=== PATIENT | female | born 1940 | race Caucasian/White ===

== ENCOUNTER 2019-11-27 12:33 | Inpatient (IN) | payer MEDICARE, SELFPAY ==
[2019-11-27] VITALS (7 sets, daily range): BP systolic 131–185; BP diastolic 44–85; PULSE 61–67; RESP 16–20; TEMP 36.3–37.1; O2SAT 94–100; BMI 23.0
--- NOTE | ~2019-11-27 | XR_ITS ---
EXAMINATION: XR chest 1V portable DATE: 11/27/2019 13:34 INDICATION: Cough TECHNIQUE: frontal view of the chest was obtained. COMPARISON: Chest radiograph dated 05/03/2018 FINDINGS: Eventration along the right hemidiaphragm. Linear discoid atelectasis at the bilateral lung bases and left midlung zone. Diffuse mild increased interstitial pattern with bronchial wall thickening. No pl eural effusion or pneumothorax. Cardiomegaly. Atherosclerotic aorta. Moderate degenerative skeletal c hanges in the spine and at both shoulders. IMPRESSION: 1. Bilateral mild increased interstitial pattern in the lower lungs with bronchial wall thickening mo st likely pulmonary edema although differential includes bronchitis/bronchiolitis. 2. Cardiomegaly. Reviewed, dictated and finalized at location A. IMPRESSION: 1. Bilateral mild increased interstitial pattern in the lower lungs with bronch ial wall thickening most likely pulmonary edema although differential includes bronchitis/bronchiolitis. 2. Cardiomegaly.
--- NOTE | ~2019-11-27 | CT_ITS ---
EXAMINATION: CT abdomen pelvis wo con DATE: 11/27/2019 14:05 INDICATION: Abdominal pain. Shortness of breath and cough. TECHNIQUE: Computed tomography (CT) of the abdomen and pelvis was performed without intravenous contr ast. Automated exposure control and iterative reconstruction technique were employed. The dose-length product was 382.46 mGy-cm. COMPARISON: 11/26/2016 FINDINGS: Very small right pleural effusion. There is peripheral predominant mild smooth septal line thickening in the bilateral lower lobes, right greater than left consistent with mild pulmonary edema. Cardiome nehemias. Liver, spleen and bilateral adrenal glands are normal. Gallbladder is dilated to 4.5 cm in maxi mal transaxial dimension but without evident wall thickening or pericholecystic inflammatory change t o suggest acute cholecystitis. Chronic dilation of the main pancreatic duct which measures up to 5 mm at the body of the pancreas. Pancreas is otherwise unremarkable. Moderate to severe right renal atro phy with multiple right renal cysts. There is mild right hydroureteronephrosis which extends to the b ladder with no evident obstructing stones or masses. The right ureterovesicular junction is positione d more anteriorly than typical. Left kidney is normal. Bladder is normal. Postoperative change of heide or partial colectomy with small amount of residual high attenuation inspissated material within a janeth g Villavicencio's pouch. Left lower quadrant and colostomy with parastomal herniation of a short length of the distal colon. No bowel obstruction. No free intraperitoneal gas or fluid. No pathologically enlar ged abdominal or pelvic lymphadenopathy. There is calcified atherosclerosis of the aorta and many of the other arteries. 5 mm anterolisthesis L4 on L5 and L5 on S1 with associated mild disc height loss severe bilateral facet osteoarthritis at both levels. IMPRESSION: 1. Cardiomegaly and likely congestive heart failure related mild pulmonary edema at the lung bases wi th very small right pleural effusion. 2. Mild right hydroureteronephrosis extending to the moderately atrophic right kidney. No obstructing stone or mass identified however the ureterovesicular junction appears more anteriorly located than typical which itself might result in a relative obstruction or potentially reflux. There is some stra nding along the right ureter and would correlate with urinalysis to exclude ascending urinary tract i nfection. 3. Stable appearance of dilated gallbladder and dilated main pancreatic duct without associated infla mmatory change to suggest either acute cholecystitis or acute pancreatitis. Reviewed, dictated and finalized at location A. IMPRESSION: 1. Cardiomegaly and likely congestive heart failure related mild pulmonary quynh a at the lung bases with very small right pleural effusion. 2. Mild right hydroureteronephrosis extending to the moderately atrophic right kidney. No obstructing stone or mass identified however the ureterovesicular ju nction appears more anteriorly located than typical which itself might result i n a relative obstruction or potentially reflux. There is some stranding along t he right ureter and would correlate with urinalysis to exclude ascending urinar y tract infection. 3. Stable appearance of dilated gallbladder and dilated main pancreatic duct wi thout associated inflammatory change to suggest either acute cholecystitis or a cute pancreatitis.
--- NOTE | ~2019-11-27 | US_ITS ---
EXAMINATION: US renal BI DATE: 11/29/2019 10:01 INDICATION: Hydronephrosis. TECHNIQUE: Multiple ultrasound grayscale images of the kidneys were obtained. COMPARISON: CT dated 11/27/2019 FINDINGS: The right kidney measures 8.3 x 3.9 x 4.5 cm. Cortical thinning at the right kidney with several simp le appearing anechoic cysts measuring up to 1.6 cm. The left kidney measures 9.4 x 4.4 x 5.8 cm. Norm al renal cortical echogenicity. There is mild bilateral hydronephrosis No stones identified. The blad alexandra is decompressed around a Landa catheter which limits evaluation. IMPRESSION: 1. Mild bilateral hydronephrosis. 2. Moderate right renal atrophy. Reviewed, dictated and finalized at location A.
--- NOTE | ~2019-11-27 | US_ITS ---
EXAMINATION: US right upper quadrant DATE: 11/28/2019 08:18 INDICATION: Right upper quadrant pain TECHNIQUE: Multiple grayscale and Doppler ultrasound images of the abdomen were obtained. COMPARISON: CT from yesterday and 11/26/2016 FINDINGS: The head and and body of the pancreas are normal. The pancreatic tail is obscured by bowel gas. There is chronic enlargement of the pancreatic duct which measures up to 4 mm. The liver is norm al with normal echogenicity and echotexture. No surface nodularity. Normal hepatopetal flow in the ma in portal vein. There is chronic distention of the gallbladder. No pericholecystic fluid, gallbladder wall thickening, or gallstones are present. The chronically dilated common bile duct measures 9 mm w hich is unchanged. There was no sonographic Almanza sign. IMPRESSION: 1. Chronic distention of the gallbladder, common bile duct and pancreatic duct without acute findings seen. Reviewed, dictated and finalized at location A.
--- NOTE | 2019-11-27 12:54 | ED.URI ---
HPI - URI/Sore Throat General Chief Complaint: Urogenital-Female Stated Complaint: sob/dry cough/uti symptoms Time Seen by Provider: 11/27/19 12:54 Source: patient and family Mode of arrival: EMS Limitations: no limitations History of Present Illness HPI Narrative: A 79 y/o female pt presents to the ED, via EMS, with c/o cough and chest congestion since Thursday (5 days ago). Family at bedside states that the pt has a hx of chronic UTI and states that she just finished her prescription of Bactrim today. Family states that if the abx was effective, the pt would be prescribed a low dose to take daily. Pt denies fever or N/V/D. Family at bedside notes pt having increased SOB since onset of congestion. Family states that the pt normally only uses O2 x 2L via NC at night, but states since congestion pt's O2 Sat is reading low, and the pt has been using O2 more frequently. Family notes pt having a PMHx of COPD. MD elicited complaint: cough and other (chest congestion) Pertinent past history: COPD Onset (ago): day(s) (5) Consistency: progressively worsening Associated symptoms: cough, shortness of breath and other (chest congestion) Related Data Home Medications Medication Instructions Recorded Confirmed Iron 65 mg BYMOUTH DAILY 11/27/19 11/27/19 albuterol sulfate [Ventolin HFA] 2 puff INHALATION QID PRN 11/27/19 11/27/19 aspirin [Adult Low Dose Aspirin] 81 mg PO DAILY 11/27/19 11/27/19 budesonide-formoterol [Symbicort] 2 puff INHALATION BID 11/27/19 11/27/19 cholecalciferol (vitamin D3) 5,000 unit PO DAILY 11/27/19 11/27/19 [Vitamin D3] cyanocobalamin (vitamin B-12) 2,500 mcg PO 3XW 11/27/19 11/27/19 [Vitamin B-12] diphenoxylate-atropine 1 tablet PO BID 11/27/19 11/27/19 ergocalciferol (vitamin D2) 1,250 mcg PO 2XW 11/27/19 11/27/19 fluoxetine 80 mg PO DAILY 11/27/19 11/27/19 loperamide 4 mg PO BID 11/27/19 11/27/19 magnesium oxide 500 mg PO 4XW 11/27/19 11/27/19 memantine 10 mg PO BID 11/27/19 11/27/19 metoprolol tartrate 25 mg PO BID 11/27/19 11/27/19 montelukast 10 mg PO DAILY 11/27/19 11/27/19 mqizkiemccyk-pvc-ozft-FA-vit K 1 tablet PO DAILY 11/27/19 11/27/19 [Adults Multivitamin] tiotropium bromide [Spiriva 1 puff INHALATION BID 11/27/19 11/27/19 Respimat] vitamin A 10,000 unit PO DAILY 11/27/19 11/27/19 zinc sulfate 220 mg PO DAILY 11/27/19 11/27/19 Allergies Allergy/AdvReac Type Severity Reaction Status Date / Time levofloxacin Allergy Intermediate Confusion Verified 06/27/19 15:47 bupropion Allergy Unknown Verified 06/27/19 15:47 Sulfa (Sulfonamide Allergy Unknown Verified 06/27/19 15:47 Antibiotics) Review of Systems Review of Systems: All systems reviewed & are unremarkable except as noted in HPI and below Constitutional: Constitutional: Denies fever(s) Respiratory: Respiratory: Reports chest congestion, Reports cough and Reports dyspnea Gastrointestinal: Gastrointestinal: Denies diarrhea, Denies nausea and Denies vomiting PMF Past Medical History Medical History (Updated 11/27/19 @ 18:58 by Daniele Bowman DO) Abdominal aortic aneurysm Acute renal failure (ARF) Anemia Anxiety Arthritis Asthma Cataracts, bilateral Cervical cancer CHF (congestive heart failure) Chronic UTI Colitis COPD (chronic obstructive pulmonary disease) Depression Eczema Heart murmur Hepatitis History of gastroesophageal reflux (GERD) History of rectal polyps History of TIA (transient ischemic attack) Hydronephrosis Hypercholesteremia Hypertension Irritable bowel Kidney stones Melena Osteoporosis Ovarian cancer Pneumonia Renal disease Right wrist fracture Sleep apnea Spinal stenosis UTI (urinary tract infection) Surgical History Surgical History (Updated 11/27/19 @ 14:27 by Emeterio Alva [facility]) History of colectomy History of hysterectomy History of nephrectomy Family History Family History (Updated 04/27/14 @ 07:13 by DOCTOR UNKNOWN) Mother Family history of Alzheimer's disease Acut
[2019-11-27 13:27] LABS: Basophils Percent Auto 0.2 % (0.2-1.2); Eosinophils Absolute Auto 0.1 K/mm3 (0-0.3); Eosinophils Percent Auto 0.5 % (0-4.4); Hematocrit 34.5 % (37.0-47.0); Hemoglobin 11.5 g/dL (12.0-15.0); Immature Granulocyte Absolute 0.41 K/mm3 (0.00-0.031); Immature Granulocyte Percent A 3.2 % (0-0.5); Lymphocytes Absolute Auto 0.81 K/mm3 (0.9-3.2); Lymphocytes Percent Auto 6.3 % (18.3-44.2); Mean Corpuscular HGB Conc 33.3 g/dl (32-36); Mean Corpuscular Hemoglobin 28.5 pg (26-34); Mean Corpuscular Volume 85.4 fl (80-100); Mean Platelet Volume 8.6 fl (7.4-10.4); Monocytes Absolute Auto 0.7 K/mm3 (0.1-0.6); Monocytes Percent Auto 5.5 % (2.6-8.5); Neutrophils Absolute Auto 10.8 K/mm3 (1.3-6.7); Neutrophils Percent Auto 84.3 % (45.5-73.1); Platelet Count Result 405 k/mm3 (150-375); Red Blood Count 4.04 M/mm3 (4.2-5.4); Red Cell Distribution Width 13.7 % (11.5-14.5); White Blood Count 12.8 K/mm3 (4.5-10.0)
[2019-11-27 13:35] LABS: INR 1.7; Prothrombin Time 19.3 Seconds (11.1-14.7)
[2019-11-27 13:36] LABS: Partial Thromboplastin Time 39.9 SECONDS (22.3-36.8)
[2019-11-27 13:38] LABS: Alanine Aminotransferase 27 U/L (4-35); Albumin Level 3.9 g/dL (3.5-5.1); Alkaline Phosphatase 329 U/L (38-126); Aspartate Amino Transferase 38 U/L (14-36); Bilirubin,Total 0.3 mg/dL (0.2-1.3); Blood Urea Nitrogen 84 mg/dL (7-17); Calcium 8.6 mg/dL (8.4-10.2); Carbon Dioxide 15 mmol/L (22-30); Chloride 97 mmol/L (98-107); Glucose 69 mg/dL (65-105); Lactic Acid Reflex 0.7 mmol/L (0.7-2.1); Potassium 5.7 mmol/L (3.4-5.0); Sodium 129 mmol/L (137-145)
--- NOTE | 2019-11-27 13:40 | ECG_ITS ---
Measurements Intervals [place] Rate: 62 P: 71 RI: 177 QRS: 0 QRSD: 91 T: 35 QT: 445 QTc: 455 Interpretive Statements SINUS RHYTHM VOLTAGE CRITERIA FOR LVH BORDERLINE ECG Electronically Signed On 11-27-2019 14:54:56 CDT by Kulwant Ann D.O.
[2019-11-27 13:44] LABS: Add Urine Microscopic? YES; Appearance Urine Cloudy (Clear); Bacteria Urine Trace /hpf; Bilirubin Urine Negative (Negative); Blood Urine 3+ (Negative); Color Urine Yellow (Yellow); Glucose Urine UA Negative (Negative); Ketones Urine Negative (Negative); Leukocyte Esterase Ur 3+ LEU/UL (Negative); Nitrate Urine Negative (Negative); Protein Urine 1+ mg/dL (Negative); RBC Urine >75 /hpf (0-2); Specific Grav Ur 1.013 (1.001-1.035); Urobilinogen Urine Negative mg/dL (<2.0); WBC Clumps Urine Present /HPF; WBC Urine >75 /hpf
[2019-11-27 13:46] LABS: NT Pro B Type Natriuretic Pept 7800 PG/ML (5-100)
[2019-11-27 13:52] LABS: Estimated CRCL calculation 8 ml/min; Estimated Glomerular Filt Rate 12
[2019-11-27 14:09] LABS: Creatine Kinase 52 U/L (30-135)
[2019-11-27] MEDS: SODIUM CHLORIDE 0.9% IV 1,000 ML 999 ML IV CONT (14:10)
[2019-11-27] MEDS: SODIUM BICARBONATE 8.4% 50 MEQ/50 ML VIAL IV PUSH (15:22)
[2019-11-27] MEDS: CALCIUM GLUCONATE 1,000 MG/10 ML VIAL 1000 MG IV PUSH (15:22)
[2019-11-27] MEDS: INSULIN HUMAN REGULAR (*BKC) 100 UNITS/ML 10 UNITS IV PUSH (15:23)
[2019-11-27] MEDS: SODIUM POLYSTYRENE SULFONONATE 15 GM/60 ML BTL 30 GM PO (15:23)
[2019-11-27] MEDS: FUROSEMIDE INJ 40 MG/4 ML VIAL IV PUSH (15:23)
[2019-11-27] MEDS: DEXTROSE 50% 25 GM/50 ML SYRINGE IV PUSH (15:23)
--- NOTE | 2019-11-27 15:42 | PC.NURSE ---
Urine is pink, and purulent at this time. EDP is aware.
--- NOTE | 2019-11-27 18:01 | WPDURCON ---
Assessment and Plan Assessment and plan (1) UTI (urinary tract infection): Code(s): N39.0 - Urinary tract infection, site not specified Status: Acute (2) Hydronephrosis: Code(s): N13.30 - Unspecified hydronephrosis Status: Acute (3) Acute renal failure (ARF): Code(s): N17.9 - Acute kidney failure, unspecified Status: Acute Assessment and Plan: 79 yo F with history of dementia, recurrent UTIs, incontinence, and atrophic right kidney. Patient with recent treatment with Bactrim for urinary tract infection. The patient was admitted today from the ER with acute renal failure, bilateral hydronephrosis, urinary retention, and worsening confusion/mental status. The patient's current condition is unclear, however it appears that most likely the patient is in retention due to her urinary tract infection which subsequently has caused bilateral hydronephrosis. -I recommend we have close monitoring of the patient's renal function. I have ordered a repeat BMP now. A nephrology consult is pending. The patient will need follow-up imaging most likely with a renal ultrasound in 24 to 48 hours with catheter drainage to ensure that there is improvement of her renal function with Landa catheter drainage. If the patient is renal function or hydronephrosis does not improve she may require ureteral stenting, however we will hold off on this intervention at this time. -will continue current conservative management with Landa catheter drainage and IV antibiotics at this time. Await urine cultures Urology Consult Note HPI Date Seen: 11/27/19 Requesting Physician: Eleni Rush MD Primary Care Provider: Nyla Joyner, ARTIST AND REPERTOIRE MANAGER Consult Narrative Narrative: Qasim Chinchilla is a 79 year old female who has a history of urinary tract infections in the past. Patient with known history of atrophic right kidney. She was most recently seen in the office Dr. Torres earlier this month who treated her with a course of antibiotics. Treated with course of Bactrim without much improvement and then given second course of Bactrim x 5 days that completed this morning. She presented to ER today with worsening confusion as well as hematuria. CT scan revealed the patient to have a distended bladder as well as bilateral hydronephrosis more on the right side to her atrophic kidney. Landa catheter was inserted in the emergency department with return of purulent appearing urine. Review of Systems Review of Systems: ROS unobtainable: Yes unobtainable due to mental status [facility] Past Medical History Medical History (Updated 11/27/19 @ 18:05 by Sujey Xiao MD) Abdominal aortic aneurysm Acute renal failure (ARF) Anemia Anxiety Arthritis Asthma Cataracts, bilateral Cervical cancer CHF (congestive heart failure) Chronic UTI Colitis COPD (chronic obstructive pulmonary disease) Depression Eczema Heart murmur Hepatitis History of gastroesophageal reflux (GERD) History of rectal polyps History of TIA (transient ischemic attack) Hydronephrosis Hypercholesteremia Hypertension Irritable bowel Kidney stones Melena Osteoporosis Ovarian cancer Pneumonia Renal disease Right wrist fracture Sleep apnea Spinal stenosis UTI (urinary tract infection) Surgical History Surgical History (Updated 11/27/19 @ 14:27 by [facility]) History of colectomy History of hysterectomy History of nephrectomy Family History Family History (Updated 04/27/14 @ 07:13 by DOCTOR UNKNOWN) Mother Family history of Alzheimer's disease Acute myocardial infarction Other Diabetes mellitus Family history of cardiovascular disease Family history of kidney disease Family history of tuberculosis Hypertension Social History Social History (Updated 11/27/19 @ 14:27 by [facility]io [employer]) Smoking status: Former smoker Tobacco type: cigarettes Smoking end date: 08/31/90 Alcohol intake: never Substan
[2019-11-27 18:53] LABS: Blood Urea Nitrogen 85 mg/dL (7-17); Calcium 9.6 mg/dL (8.4-10.2); Carbon Dioxide 21 mmol/L (22-30); Chloride 99 mmol/L (98-107); Estimated CRCL calculation 8 ml/min; Estimated Glomerular Filt Rate 11; Glucose 112 mg/dL (65-105); Potassium 4.3 mmol/L (3.4-5.0); Sodium 134 mmol/L (137-145)
--- NOTE | 2019-11-27 22:19 | PM.IMHP ---
H&P: HPI History of Present Illness Chief complaint: Acute renal failure/UTI/CHF Narrative: This is a pleasantly demented 79 year old female with known history of COPD, Depression, GERD, HTN, recurrent UTIs, s/p colostomy who presented to the hospital today with a complaint of five days of cough. Apparently the patient just finished a course of Bactrim today. The patient is known to chronically be on oxygen therapy at night but has been using her oxygen round the clock since she has been sick. On my encounter with the patient tonight she seems confused and cannot give me any reliable history. She has blood in her giordano bag and when I ask her directly she agrees that she has had hematuria. CT scan was performed in the ER today which showed a distended bladder and bilateral hydronephrosis. The patient was found to be in acute renal failure on routine labs and her urinalysis was grossly abnormal. The patient has been started on IV antibiotics and Urology has been consulted by ER provider. The patient currently denies any other symptoms. No other further history is obtainable secondary to the patient's dementia and acute confusion. Review of Systems Review of Systems: All systems reviewed & are unremarkable except as noted in HPI and below PMFSH Past Medical History Medical History Abdominal aortic aneurysm Acute renal failure (ARF) Anemia Anxiety Arthritis Asthma Cataracts, bilateral Cervical cancer CHF (congestive heart failure) Chronic UTI Colitis COPD (chronic obstructive pulmonary disease) Depression Eczema Heart murmur Hepatitis History of gastroesophageal reflux (GERD) History of rectal polyps History of TIA (transient ischemic attack) Hydronephrosis Hypercholesteremia Hypertension Irritable bowel Kidney stones Melena Osteoporosis Ovarian cancer Pneumonia Renal disease Right wrist fracture Sleep apnea Spinal stenosis UTI (urinary tract infection) Surgical History Surgical History History of colectomy History of hysterectomy History of nephrectomy Family History Family History Mother Family history of Alzheimer's disease Acute myocardial infarction Other Diabetes mellitus Family history of cardiovascular disease Family history of kidney disease Family history of tuberculosis Hypertension Social History Social History Smoking status: Former smoker Tobacco type: cigarettes Smoking end date: 08/31/90 Alcohol intake: never Substance use: never Gender identity (if verbalized by the patient): Female Spiritual care concerns: No Agree to blood products: Yes Meds Home Medications and Allergies Home Medications Medication Instructions Recorded Confirmed Type Iron 65 mg BYMOUTH DAILY 11/27/19 11/27/19 History albuterol sulfate [Ventolin HFA] 2 puff INHALATION QID PRN 11/27/19 11/27/19 History aspirin [Adult Low Dose Aspirin] 81 mg PO DAILY 11/27/19 11/27/19 History budesonide-formoterol [Symbicort] 2 puff INHALATION BID 11/27/19 11/27/19 History cholecalciferol (vitamin D3) 5,000 unit PO DAILY 11/27/19 11/27/19 History [Vitamin D3] cyanocobalamin (vitamin B-12) 2,500 mcg PO 3XW 11/27/19 11/27/19 History [Vitamin B-12] diphenoxylate-atropine 1 tablet PO BID 11/27/19 11/27/19 History ergocalciferol (vitamin D2) 1,250 mcg PO 2XW 11/27/19 11/27/19 History fluoxetine 80 mg PO DAILY 11/27/19 11/27/19 History loperamide 4 mg PO BID 11/27/19 11/27/19 History magnesium oxide 500 mg PO 4XW 11/27/19 11/27/19 History memantine 10 mg PO BID 11/27/19 11/27/19 History metoprolol tartrate 25 mg PO BID 11/27/19 11/27/19 History montelukast 10 mg PO DAILY 11/27/19 11/27/19 History ptjmfznvvlvd-tmt-mxjk-FA-vit K 1 tablet PO DAILY 11/27/19 11/27/19 History [Adults Multivitami
[2019-11-27 22:49] LABS: Lipase 255 U/L (23-300)
--- NOTE | 2019-11-28 | ECHO_ITS ---
Patient Info Name: Qasim Chinchilla Age: 79 years : 1940 Gender: Female Ht: 60 in Wt: 117 lbs BSA: 1.51 m2 HR: 75 bpm BP: 144 / 51 mmHg Heart Rhythm: Sinus Rhythm Technical Quality: Good Exam Date: 11/28/2019 9:18 AM Exam Location: [facility] Pulmonary Exam Room: [facility] Patient Status: Inpatient Admit Date: 11/27/2019 Staff Ordering Physician: Mane Galan MD Telecasting Engineer: Janelle Farooq RDCS Attending Provider: Eleni Rush MD Referring Physician: Angelia PERALTA; Exam Type: CA echo doppler color flow Study Info Indications - ACUTE CHF ARF MURMUR COPD TIA HTN Complete two-dimensional, color flow and Doppler transthoracic echocardiogram is performed. Summary 1. Left ventricular systolic function is hyperdynamic, estimated at >70%. 2. The left ventricular diastolic function is grade I diastolic dysfunction. 3. Right ventricular chamber dimension is normal. 4. Left atrial chamber dimension is moderately enlarged. 5. There is mild aortic valve sclerosis. 6. Compared with March of 2018 LV is now hyperdynamic, no other changes seen. Left Ventricle Left ventricular chamber dimension is normal. Left ventricular systolic function is hyperdynamic, estimated at >70%. There is moderate concentric increased left ventricular wall thickness. The left ventricular diastolic function is grade I diastolic dysfunction. Right Ventricle Right ventricular chamber dimension is normal. Left Atria Left atrial chamber dimension is moderately enlarged. Right Atria Right atrial chamber dimension is normal. Aortic Valve The aortic valve is trileaflet. There is mild aortic valve sclerosis. Pulmonic Valve The pulmonic valve is normal. Mitral Valve The mitral valve has normal leaflets and calcified annulus. Tricuspid Valve The tricuspid valve leaflets are normal. Pericardium/Pleural The pericardium appears normal. Aorta The aortic root size at the sinus of Valsalva is normal. Left Ventricular Outflow Tract Name Value Normal LVOT 2D LVOT Diameter 2.0 cm LVOT Doppler LVOT Peak Gradient 6 mmHg LVOT Mean Gradient 3 mmHg LVOT VTI 24 cm LVOT VTI/AV VTI Ratio 0.8 LVOT Stroke Volume 73 ml LVOT CO 15.6 l/min LVOT CI 10.3 l/min/m2 Pulmonic Valve Name Value Normal PV Doppler PV Peak Gradient 5 mmHg Mitral Valve Name Value Normal MV Doppler MV Decel Clay
[2019-11-28 06:00] VITALS: BP 144/51; PULSE 75; RESP 16; TEMP 36.1; O2SAT 99
[2019-11-28 06:03] LABS: Basophils Percent Auto 0.5 % (0.2-1.2); Eosinophils Absolute Auto 0.1 K/mm3 (0-0.3); Eosinophils Percent Auto 1.7 % (0-4.4); Hematocrit 33.3 % (37.0-47.0); Immature Granulocyte Absolute 0.32 K/mm3 (0.00-0.031); Lymphocytes Absolute Auto 0.94 K/mm3 (0.9-3.2); Lymphocytes Percent Auto 11.6 % (18.3-44.2); Mean Corpuscular Hemoglobin 28.1 pg (26-34); Mean Corpuscular Volume 85.2 fl (80-100); Mean Platelet Volume 8.3 fl (7.4-10.4); Monocytes Absolute Auto 0.7 K/mm3 (0.1-0.6); Neutrophils Absolute Auto 5.9 K/mm3 (1.3-6.7); Neutrophils Percent Auto 73.2 % (45.5-73.1); Platelet Count Result 349 k/mm3 (150-375); Red Blood Count 3.91 M/mm3 (4.2-5.4); Red Cell Distribution Width 13.8 % (11.5-14.5); White Blood Count 8.1 K/mm3 (4.5-10.0)
[2019-11-28 06:10] LABS: Blood Urea Nitrogen 73 mg/dL (7-17); Calcium 8.5 mg/dL (8.4-10.2); Carbon Dioxide 18 mmol/L (22-30); Chloride 96 mmol/L (98-107); Estimated CRCL calculation 9 ml/min; Estimated Glomerular Filt Rate 13; Glucose 80 mg/dL (65-105); Potassium 3.5 mmol/L (3.4-5.0); Sodium 132 mmol/L (137-145)
[2019-11-28 06:59] LABS: Thyroid Stimulating Hormone Reflex 0.808 uIU/mL (0.465-4.68)
--- NOTE | 2019-11-28 07:19 | P.PNUR_ITS ---
Progress Note: A&P Assessment and Plan (1) Acute urinary retention: Code(s): R33.8 - Other retention of urine Status: Acute (2) Acute renal failure (ARF): Code(s): N17.9 - Acute kidney failure, unspecified Status: Acute (3) Hydronephrosis: Qualifiers: Hydronephrosis type: unspecified Qualified Code(s): N13.30 - Unspecified hydronephrosis Code(s): N13.30 - Unspecified hydronephrosis Status: Acute Assessment and Plan: * Renal function/serum creatinine improved today. * Will get a renal ultrasound to see if hydronephrosis is improving or resolved with catheter drainage. * Currently, no plans for ureteral stent placement as long as her renal function continues to improve. Subjective Subjective Date/Time Seen: 11/28/19 07:19 Urine clear, draining well Review of Systems Cardiovascular: Cardiovascular: Denies chest pain, Denies lightheadedness, Denies palpitations and Denies dyspnea Respiratory: Respiratory: Denies dyspnea Gastrointestinal: Gastrointestinal: Denies diarrhea, Denies nausea and Denies vomiting Genitourinary: Genitourinary: Denies hematuria and Denies dysuria Endocrine: Endocrine: Denies palpitations Exam Const: General: no acute distress Resp: Effort & Inspection: normal respiratory effort GI: Inspection: non-distended GI Palp: No abdominal tenderness and No Guarding due to palpation present (GI) Auscultation: normal bowel sounds Objective Data Vital Signs Vital Signs: Vital Signs - 24 hr 11/27/19 12:45 11/27/19 13:40 11/27/19 14:29 Temperature 98.8 F Pulse Rate 63 61 63 Respiratory Rate 17 19 20 Blood Pressure 178/62 H 167/67 H 159/58 H Pulse Oximetry 94 97 94 11/27/19 16:01 11/27/19 16:38 11/27/19 21:10 Temperature 98.0 F Pulse Rate 67 62 63 Respiratory Rate 20 16 16 Blood Pressure 174/63 H 185/85 H Pulse Oximetry 100 95 100 11/27/19 22:00 11/28/19 06:00 Temperature 97.3 F L 96.9 F L Pulse Rate 63 75 Respiratory Rate 16 16 Blood Pressure 131/44 L 144/51 H Pulse Oximetry 100 99 Intake/Output Intake/Output: Intake & Output 11/25/19 11/26/19 11/27/19 11/28/19 23:59 23:59 23:59 23:59 Intake Total 600 1040 Output Total 1225 1950 Balance -625 910 Meds/Results Medications: Active Medications Generic Name Dose Route Start Last Admin Trade Name Freq PRN Reason Stop Dose Admin Albuterol 2 puff 11/27/19 22:58 Proventil Hfa INHALATION QID PRN Shortness Of Breath Aspirin 81 mg 11/28/19 09:00 Aspirin Ec PO DAILY [facility] Budesonide/Formoterol Fumarate 2 puff 11/28/19 08:00 Symbicort 160-4.5 Mcg (*Sp) Inhaler INHALATION Q12HRT [facility] Cyanocobalamin 2,000 mcg 11/28/19 09:00 Vitamin B-12 Tab PO MoWeFr@0900 DYLAN Cyanocobalamin 500 mcg 11/28/19 09:00 Vitamin B-12 Tab PO MoWeFr@0900 [facility] Ergocalciferol 5,000 unit 11/30/19 09:00 Drisdol PO SuWe@0900 DYLAN Ferrous Sulfate 324 mg 11/28/19 09:00 Ferrous Sul
--- NOTE | 2019-11-28 07:19 | WPDUROPN2 ---
Progress Note: A&P Assessment and Plan (1) Acute urinary retention: Code(s): R33.8 - Other retention of urine Status: Acute (2) Acute renal failure (ARF): Code(s): N17.9 - Acute kidney failure, unspecified Status: Acute (3) Hydronephrosis: Qualifiers: Hydronephrosis type: unspecified Qualified Code(s): N13.30 - Unspecified hydronephrosis Code(s): N13.30 - Unspecified hydronephrosis Status: Acute Assessment and Plan: Renal function/serum creatinine improved today. Will get a renal ultrasound to see if hydronephrosis is improving or resolved with catheter drainage. Currently, no plans for ureteral stent placement as long as her renal function continues to improve. Subjective Subjective Date/Time Seen: 11/28/19 07:19 Urine clear, draining well Review of Systems Cardiovascular: Cardiovascular: Denies chest pain, Denies lightheadedness, Denies palpitations and Denies dyspnea Respiratory: Respiratory: Denies dyspnea Gastrointestinal: Gastrointestinal: Denies diarrhea, Denies nausea and Denies vomiting Genitourinary: Genitourinary: Denies hematuria and Denies dysuria Endocrine: Endocrine: Denies palpitations Exam Const: General: no acute distress Resp: Effort & Inspection: normal respiratory effort GI: Inspection: non-distended GI Palp: No abdominal tenderness and No Guarding due to palpation present (GI) Auscultation: normal bowel sounds Objective Data Vital Signs Vital Signs: Vital Signs - 24 hr 11/27/19 12:45 11/27/19 13:40 11/27/19 14:29 Temperature 98.8 F Pulse Rate 63 61 63 Respiratory Rate 17 19 20 Blood Pressure 178/62 H 167/67 H 159/58 H Pulse Oximetry 94 97 94 11/27/19 16:01 11/27/19 16:38 11/27/19 21:10 Temperature 98.0 F Pulse Rate 67 62 63 Respiratory Rate 20 16 16 Blood Pressure 174/63 H 185/85 H Pulse Oximetry 100 95 100 11/27/19 22:00 11/28/19 06:00 Temperature 97.3 F L 96.9 F L Pulse Rate 63 75 Respiratory Rate 16 16 Blood Pressure 131/44 L 144/51 H Pulse Oximetry 100 99 Intake/Output Intake/Output: Intake & Output 03/11/26/19 11/27/19 11/28/19 23:59 23:59 23:59 23:59 Intake Total 600 1040 Output Total 1224 2536 Balance -907 -910 Meds/Results Medications: Active Medications Generic Name Dose Route Start Last Admin Trade Name Freq PRN Reason Stop Dose Admin Albuterol 2 puff 11/27/19 22:58 Proventil Hfa INHALATION QID PRN Shortness Of Breath Aspirin 81 mg 11/28/19 09:00 Aspirin Ec PO DAILY [facility] Budesonide/Formoterol Fumarate 2 puff 11/28/19 08:00 Symbicort 160-4.5 Mcg (*Sp) Inhaler INHALATION Q12HRT [facility] Cyanocobalamin 2,000 mcg 11/28/19 09:00 Vitamin B-12 Tab PO MoWeFr@0900 [facility] Cyanocobalamin 500 mcg 11/28/19 09:00 Vitamin B-12 Tab PO MoWeFr@0900 [facility] Ergocalciferol 5,000 unit 11/30/19 09:00 Drisdol PO SuWe@0900 [facility] Ferrous Sulfate 324 mg 11/28/19 09:00 Ferrous Sulfate PO DAILY [facility] Fluoxetine HCl 80 mg 11/28/19 09:00 Prozac PO DAILY [facility] Hydralazine HCl 10 mg 11/27/19 21:16 Apresoline Hcl Inj IV PUSH 11/29/19 07:00 Q8H PRN see comment Ceftriaxone Sodium/Dextrose 1 gm in 50 mls @ 100 mls/hr 11/28/19 14:00 11/27/19 16:06 Rocephin 1 Gm/D5w 50 Ml IVPB Not Given DAILY@1400 [facility] Loperamide HCl 4 mg 11/28/19 09:00 Loperamide Hcl PO BID [facility] Memantine 10 mg 11/27/19 23:10 11/28/19 03:56 Namenda PO Not Given BID [facility] Metoprolol Tartrate 25 mg 11/27/19 23:10 11/27/19 23:10 Lopressor PO Not Given BID [facility] Montelukast Sodium 10 mg 11/28/19 09:00 Singulair PO DAILY [facility] Multivitamins/Minerals 1 tab 11/28/19 09:00 Centrum Silver PO DAILY [facility] Non-Formulary Medication 500 mg 11/27/19 23:00 Magnesium Oxide PO 12/27/19 23:01 4XW [facility] Non-Formulary Medication 1 puff 11/28/19 09:00 Tiot
[2019-11-28] MEDS: CHOLECALCIFEROL 1,000 UNIT TABLET 5000 UNITS PO (08:23)
[2019-11-28] MEDS: MEMANTINE 10 MG TABLET PO ×2 (08:23→16:42)
[2019-11-28] MEDS: CYANOCOBALAMIN 500 MCG TABLET PO (08:24)
[2019-11-28] MEDS: ZINC SULFATE 220 MG CAPSULE PO (08:24)
[2019-11-28] MEDS: FERROUS SULFATE 324 MG TABLET PO (08:24)
[2019-11-28] MEDS: MULTIVITAMINS /C LUTEIN (CENTRUM SILVER) TABLET *BKC 1 TAB PO (08:24)
[2019-11-28] MEDS: METOPROLOL TARTRATE 25 MG TABLET PO ×2 (08:24→16:42)
[2019-11-28] MEDS: MONTELUKAST SODIUM 10 MG TABLET PO (08:24)
[2019-11-28] MEDS: CYANOCOBALAMIN 1,000 MCG TABLET 2000 MCG PO (08:24)
[2019-11-28] MEDS: FLUOXETINE HCL 20 MG CAP 80 MG PO (08:25)
[2019-11-28] MEDS: ASPIRIN 81 MG ENTERIC TABLET PO (08:25)
[2019-11-28] MEDS: LOPERAMIDE HCL 2 MG CAPSULE 4 MG PO ×2 (08:25→16:42)
--- NOTE | 2019-11-28 12:24 | PM.IMPN ---
Progress Note: A&P Assessment and Plan (1) Complicated UTI (urinary tract infection): Code(s): N39.0 - Urinary tract infection, site not specified Status: Acute Assessment and Plan: Continue IV antibiotics, UC is pending (2) Acute renal failure: Qualifiers: Acute renal failure type: unspecified Qualified Code(s): N17.9 - Acute kidney failure, unspecified Code(s): N17.9 - Acute kidney failure, unspecified Status: Acute Assessment and Plan: Ct shows- hydronephrosis and had a distended bladder. Creat is 3.3 (3) CHF (congestive heart failure): Qualifiers: Heart failure chronicity: acute Heart failure type: unspecified Qualified Code(s): I50.9 - Heart failure, unspecified Code(s): I50.9 - Heart failure, unspecified Status: Acute Assessment and Plan: r/o acute CHF exacerbation. Continue lasix. pro BNP is 7800 (4) Abnormal CT scan: Code(s): R93.89 - Abnormal findings on diagnostic imaging of other specified body structures Status: Acute Assessment and Plan: Check RUQ U/S. Lipase was normal. (5) Hydronephrosis: Qualifiers: Hydronephrosis type: unspecified Qualified Code(s): N13.30 - Unspecified hydronephrosis Code(s): N13.30 - Unspecified hydronephrosis Status: Acute Assessment and Plan: Secondary to urinary retention. Continue Urology recommendations. (6) COPD (chronic obstructive pulmonary disease): Qualifiers: COPD type: unspecified COPD Qualified Code(s): J44.9 - Chronic obstructive pulmonary disease, unspecified Code(s): J44.9 - Chronic obstructive pulmonary disease, unspecified Status: Acute Assessment and Plan: Continue bronchodilators. (7) Depression: Qualifiers: Depression Type: unspecified Qualified Code(s): F32.9 - Major depressive disorder, single episode, unspecified Code(s): F32.9 - Major depressive disorder, single episode, unspecified Status: Acute Assessment and Plan: Resume home fluoxetine PO. (8) Hypertension: Qualifiers: Hypertension type: unspecified Qualified Code(s): I10 - Essential (primary) hypertension Code(s): I10 - Essential (primary) hypertension Status: Acute Assessment and Plan: Chronic and stable. Continue to monitor Bps Subjective Date/time seen: 11/28/19 12:24 Interval history: Mrs. Chinchilla demented 79 year old female with known history of COPD, Depression, GERD, HTN, recurrent UTIs, s/p colostomy who presented to the hospital today with a complaint of five days of cough. Uses oxygen at home. cxr shows -Bilateral mild increased interstitial pattern in the lower lungs with bronchial wall thickening most likely pulmonary edema although differential includes bronchitis/bronchiolitis. Ct scan- mild bilateral hydronephrosis and hydroureter extending to the bladder. Pt is a poor historian, no specific complaints. Ongoing cough in the room. Review of Systems Review of Systems: All systems reviewed & are unremarkable except as noted in HPI and below ROS unobtainable: Yes unobtainable due to medical condition Exam Const: General: cooperative, no acute distress, alert and awake Nutritional Appearance: well nourished Orientation/consciousness: oriented to person Resp: Effort & Inspection: normal respiratory effort Auscultation: crackles bilateral and diffuse Cardio: Rate: regular rate Rhythm: regular rhythm Heart sounds: no murmurs GI: Inspection: normal to inspection and other (LLQ colostomy bag in place+) Auscultation: normal bowel sounds Skin: General skin exam: normal color and no rashes or lesions noted Neuro: General: oriented to person Cranial nerves: Yes CN's II-XII intact bilaterally and Yes Equal, round and reactive pupils present Speech: normal speech Motor exam (neuro): 5/5 motor strength present throughout Sensory Ex
--- NOTE | 2019-11-28 12:45 | PM.CNNEP ---
Assessment and Plan Assessment and plan (1) Acute renal failure: Qualifiers: Acute renal failure type: unspecified Qualified Code(s): N17.9 - Acute kidney failure, unspecified Code(s): N17.9 - Acute kidney failure, unspecified Status: Acute Assessment and Plan: Patient has acute kidney injury. Her baseline creatinine seems normal. She has hydronephrosis on her CT scan. A Landa catheter was placed and she is making lots of urine. Her creatinine is already getting better. I suspect that most of this is from the obstruction. Urology is on the case to work out the etiology there of. Patient also has a bladder infection which may slow the improvement of her creatinine. She is on antibiotics for this. (2) UTI (urinary tract infection): Code(s): N39.0 - Urinary tract infection, site not specified Status: Acute Assessment and Plan: She has pyuria. Urine culture is pending. She is getting ceftriaxone for this. (3) Hydronephrosis: Qualifiers: Hydronephrosis type: unspecified Qualified Code(s): N13.30 - Unspecified hydronephrosis Code(s): N13.30 - Unspecified hydronephrosis Status: Acute Assessment and Plan: As per CT abdomen. Urology is on the case she has a catheter in her bladder (4) Hypertension: Qualifiers: Hypertension type: unspecified Qualified Code(s): I10 - Essential (primary) hypertension Code(s): I10 - Essential (primary) hypertension Status: Acute Assessment and Plan: her blood pressure is under pretty good control (5) COPD (chronic obstructive pulmonary disease): Qualifiers: COPD type: unspecified COPD Qualified Code(s): J44.9 - Chronic obstructive pulmonary disease, unspecified Code(s): J44.9 - Chronic obstructive pulmonary disease, unspecified Status: Acute Assessment and Plan: getting supportive therapy History of Present Illness Reason for Consult Consult date: 11/28/19 Chief Complaint Chief complaint: Acute renal failure/UTI/CHF History of Present Illness Narrative: This patient is a very pleasant 79-year-old lady who has multiple medical problems including COPD, vitamin-D deficiency, anemia, dementia, depression, GERD, hypertension, recurrent UTIs, and colostomy. The patient came in because of extra confusion,. The patient was seen in the emergency room and found to have renal failure and UTI. The patient started with a creatinine of 3.6. She has no prior history of kidney disease that we know of. Her creatinine nena to 4 yesterday evening so renal consultation was requested. This morning the creatinine has fallen a little bit to 3.3. The patient can't really give any history. She can tell me that she does not have any pain in her chest or belly, no bloody urine, no kidney stones or bladder infections, no itching, skin rash, fevers or chills. She does have a low sodium and this is chronic. Back in May her sodium was 136. She had blood and urine cultures done and she was placed on antibiotics and given some IV fluids. She wants to go home. She is on a fluid restriction and is very thirsty. Review of Systems Constitutional: Constitutional: Reports no additional constitutional complaints Eyes: Eyes: Reports no additional eye complaints ENT: Reports system reviewed and no additional complaints, except as documented Cardiovascular: Cardiovascular: Reports no additional cardiovascular complaints Respiratory: Respiratory: Reports no additional respiratory complaints Gastrointestinal: Gastrointestinal: Reports no additional gastrointestinal complaints Genitourinary: Genitourinary: Reports no additional female genitourinary complaints Musculoskeletal: Musculoskeletal: Reports no additional musculoskeletal complaints Integumentary/Breasts: Skin/Breast: Reports system reviewed and no additional
[2019-11-28 14:00] VITALS: BP 142/45; PULSE 62; RESP 18; TEMP 36.8; O2SAT 98
[2019-11-28 14:15] LABS: Creatinine Urine 67.2 mg/dL; Total Protein Urine Random 81 mg/dL
[2019-11-28 14:16] LABS: Sodium Urine Random 28 meq/L
[2019-11-28 20:06] VITALS: BP 141/88; PULSE 62; RESP 16; TEMP 36.6; O2SAT 98
[2019-11-28 21:24] VITALS: PULSE 66; RESP 18; O2SAT 98
[2019-11-29 05:58] LABS: Hematocrit 40.8 % (37.0-47.0); Hemoglobin 13.2 g/dL (12.0-15.0); Mean Corpuscular HGB Conc 32.4 g/dl (32-36); Mean Corpuscular Hemoglobin 27.9 pg (26-34); Mean Corpuscular Volume 86.3 fl (80-100); Mean Platelet Volume 8.9 fl (7.4-10.4); Platelet Count Result 529 k/mm3 (150-375); Red Blood Count 4.73 M/mm3 (4.2-5.4); Red Cell Distribution Width 13.6 % (11.5-14.5); White Blood Count 15.2 K/mm3 (4.5-10.0)
[2019-11-29 06:00] VITALS: BP 130/90; PULSE 57; RESP 13; TEMP 36.4; O2SAT 98
[2019-11-29 06:29] LABS: Blood Urea Nitrogen 69 mg/dL (7-17); Calcium 9.8 mg/dL (8.4-10.2); Carbon Dioxide 29 mmol/L (22-30); Chloride 89 mmol/L (98-107); Estimated CRCL calculation 11 ml/min; Estimated Glomerular Filt Rate 16; Glucose 251 mg/dL (65-105); Potassium 3.2 mmol/L (3.4-5.0); Sodium 134 mmol/L (137-145)
[2019-11-29 08:05] LABS: Creatine Kinase 56 U/L (30-135)
[2019-11-29] MEDS: ASPIRIN 81 MG ENTERIC TABLET PO (08:09)
[2019-11-29] MEDS: MEMANTINE 10 MG TABLET PO (08:09)
[2019-11-29] MEDS: CHOLECALCIFEROL 1,000 UNIT TABLET 5000 UNITS PO (08:09)
[2019-11-29] MEDS: FERROUS SULFATE 324 MG TABLET PO (08:09)
[2019-11-29] MEDS: METOPROLOL TARTRATE 25 MG TABLET PO (08:10)
[2019-11-29] MEDS: MULTIVITAMINS /C LUTEIN (CENTRUM SILVER) TABLET *BKC 1 TAB PO (08:10)
[2019-11-29] MEDS: MONTELUKAST SODIUM 10 MG TABLET PO (08:10)
[2019-11-29] MEDS: ZINC SULFATE 220 MG CAPSULE PO (08:10)
[2019-11-29] MEDS: LOPERAMIDE HCL 2 MG CAPSULE 4 MG PO (08:10)
[2019-11-29] MEDS: FLUOXETINE HCL 20 MG CAP 80 MG PO (08:11)
[2019-11-29] MEDS: MAGNESIUM OXIDE 400 MG TABLET PO (08:11)
[2019-11-29 08:25] VITALS: PULSE 64; RESP 18; O2SAT 98
--- NOTE | 2019-11-29 08:53 | PM.PNNEP ---
Progress Note: A&P Assessment and Plan (1) Acute renal failure: Qualifiers: Acute renal failure type: unspecified Qualified Code(s): N17.9 - Acute kidney failure, unspecified Code(s): N17.9 - Acute kidney failure, unspecified Status: Acute Assessment and Plan: Patient has acute kidney injury. Her baseline creatinine seems normal. She has hydronephrosis on her CT scan. A Landa catheter was placed And she is improved. CK is normal. Urine electrolytes are non prerenal. (2) UTI (urinary tract infection): Code(s): N39.0 - Urinary tract infection, site not specified Status: Acute Assessment and Plan: She has pyuria. Urine culture is Is growing Pseudomonas. No sensitivities back yet. She is getting ceftriaxone for this. She is afebrile but her white blood cell count is up some. (3) Hydronephrosis: Qualifiers: Hydronephrosis type: unspecified Qualified Code(s): N13.30 - Unspecified hydronephrosis Code(s): N13.30 - Unspecified hydronephrosis Status: Acute Assessment and Plan: As per CT abdomen. Urology is on the case she has a catheter in her bladder (4) Hypertension: Qualifiers: Hypertension type: unspecified Qualified Code(s): I10 - Essential (primary) hypertension Code(s): I10 - Essential (primary) hypertension Status: Acute Assessment and Plan: her blood pressure is under Good control. (5) COPD (chronic obstructive pulmonary disease): Qualifiers: COPD type: unspecified COPD Qualified Code(s): J44.9 - Chronic obstructive pulmonary disease, unspecified Code(s): J44.9 - Chronic obstructive pulmonary disease, unspecified Status: Acute Assessment and Plan: getting supportive therapy Subjective Date/time seen: 11/29/19 08:53 Interval history: Patient is awake. Trying to eat her breakfast. She is using a straw for her cereal. I gave her a spoon and she is doing much better no shortness of breath or chest pain. Review of Systems Cardiovascular: Cardiovascular: Reports no additional cardiovascular complaints Respiratory: Respiratory: Reports no additional respiratory complaints Gastrointestinal: Gastrointestinal: Reports no additional gastrointestinal complaints Genitourinary: Genitourinary: Reports no additional female genitourinary complaints Exam Narrative: Exam Narrative: Well developed well-nourished in no acute distress Lungs clear Heart regular without rub Abdomen bowel sounds positive soft nontender Extremities no edema Skin no rash Objective Data Vital Signs Vital Signs: Vital Signs - 24 hr 11/28/19 14:00 11/28/19 20:06 11/28/19 21:24 Temperature 36.8 C 36.6 C Pulse Rate 62 62 66 Respiratory Rate 18 16 18 Blood Pressure 142/45 H 141/88 H Pulse Oximetry 98 98 98 11/29/19 06:00 Temperature 36.4 C Pulse Rate 57 L Respiratory Rate 13 Blood Pressure 130/90 Pulse Oximetry 98 Intake/Output Intake/Output: Intake & Output 11/26/19 11/27/19 11/28/19 11/29/19 23:59 23:59 23:59 23:59 Intake Total 600 1860 200 Output Total 1225 3150 650 Balance -100 -4840 -450 Meds/Results Medications: Active Medications Generic Name Dose Route Start Last Admin Trade Name Freq PRN Reason Stop Dose Admin Albuterol 2 puff 11/27/19 22:58 Proventil Hfa INHALATION QID PRN Shortness Of Breath Aspirin 81 mg 11/28/19 09:00 11/29/19 08:09 Aspirin Ec PO 81 mg DAILY [facility] Administration Budesonide/Formoterol Fumarate 2 puff 11/28/19 08:00 11/29/19 08:25 Symbicort 160-4.5 Mcg (*Sp) Inhaler INHALATION 2 puff Q12HRT [facility] Administration Cyanocobalamin 2,000 mcg 11/28/19 09:00 11/28/19 08:24 Vitamin B-12 Tab PO 2,000 mcg MoWeFr@0900 [facility] Administration Cyanocobalamin 500 mcg 11/28/19 09:00 11/28/19 08:24 Vitamin B-12 Tab PO 500 mcg MoWeFr@090
--- NOTE | 2019-11-29 09:23 | WPDUROPN2 ---
Progress Note: A&P Assessment and Plan (1) Acute urinary retention: Code(s): R33.8 - Other retention of urine Status: Acute (2) Acute renal failure (ARF): Code(s): N17.9 - Acute kidney failure, unspecified Status: Acute (3) Hydronephrosis: Qualifiers: Hydronephrosis type: unspecified Qualified Code(s): N13.30 - Unspecified hydronephrosis Code(s): N13.30 - Unspecified hydronephrosis Status: Acute Assessment and Plan: Renal function/serum creatinine improved today. Will get a renal ultrasound to see if hydronephrosis is improving or resolved with catheter drainage. Currently, no plans for ureteral stent placement as long as her renal function continues to improve. 11/29/2019 Slow, continued improvement in serum creat. Will plan to leave indwelling catheter until she can f/u as outpatient for urodynamics. Subjective Subjective Date/Time Seen: 11/29/19 09:23 No complaints Review of Systems Cardiovascular: Cardiovascular: Denies chest pain, Denies lightheadedness, Denies palpitations and Denies dyspnea Respiratory: Respiratory: Denies dyspnea Gastrointestinal: Gastrointestinal: Denies diarrhea, Denies nausea and Denies vomiting Genitourinary: Genitourinary: Denies hematuria and Denies dysuria Endocrine: Endocrine: Denies palpitations Exam Const: General: no acute distress Resp: Effort & Inspection: normal respiratory effort GI: Inspection: non-distended GI Palp: No abdominal tenderness and No Guarding due to palpation present (GI) Auscultation: normal bowel sounds Urinary Catheter: Urinary Catheter: patent and draining and urine clear Objective Data Vital Signs Vital Signs: Vital Signs - 24 hr 11/28/19 14:00 11/28/19 20:06 11/28/19 21:24 Temperature 98.2 F 97.9 F Pulse Rate 62 62 66 Respiratory Rate 18 16 18 Blood Pressure 142/45 H 141/88 H Pulse Oximetry 98 98 98 11/29/19 06:00 Temperature 97.6 F Pulse Rate 57 L Respiratory Rate 13 Blood Pressure 130/90 Pulse Oximetry 98 Intake/Output Intake/Output: Intake & Output 11/26/19 11/27/19 11/28/19 11/29/19 23:59 23:59 23:59 23:59 Intake Total 600 1860 200 Output Total 1225 3150 650 [facility] -799 -1290 -450 Meds/Results Medications: Active Medications Generic Name Dose Route Start Last Admin Trade Name Freq PRN Reason Stop Dose Admin Albuterol 2 puff 11/27/19 22:58 Proventil Hfa INHALATION QID PRN Shortness Of Breath Aspirin 81 mg 11/28/19 09:00 11/29/19 08:09 Aspirin Ec PO 81 mg DAILY [facility] Administration Budesonide/Formoterol Fumarate 2 puff 11/28/19 08:00 11/29/19 08:25 Symbicort 160-4.5 Mcg (*Sp) Inhaler INHALATION 2 puff Q12HRT [facility] Administration Cyanocobalamin 2,000 mcg 11/28/19 09:00 11/28/19 08:24 Vitamin B-12 Tab PO 2,000 mcg MoWeFr@0900 [facility] Administration Cyanocobalamin 500 mcg 11/28/19 09:00 11/28/19 08:24 Vitamin B-12 Tab PO 500 mcg MoWeFr@0900 [facility] Administration Dextrose 12.5 gm 11/29/19 08:57 Dextrose 50% Syringe IV PUSH PRN PRN Hypoglycemia Protocol Ergocalciferol 5,000 unit 11/30/19 09:00 Drisdol PO SuWe@0900 [facility] Ferrous Sulfate 324 mg 11/28/19 09:00 11/29/19 08:09 Ferrous Sulfate PO 324 mg DAILY [facility] Administration Fluoxetine HCl 80 mg 11/28/19 09:00 11/29/19 08:11 Prozac PO 80 mg DAILY [facility] Administration Glucagon 1 mg 11/29/19 08:57 Glucagon For Inj IM PRN PRN Hypoglycemia Protocol Glucose 15 gm 11/29/19 08:57 Glutose 15 PO PRN PRN Hypoglycemia Protocol Cefepime HCl 0.5 gm/ Dextrose 50 mls @ 100 mls/hr 11/29/19 09:00 IVPB DAILY [facility] Dextrose 1,000 mls @ 100 mls/hr 11/29/19 08:57 Dextrose 5% 1,000 Ml IVPB PRN PRN Hypoglycemia Protocol Vancomycin HCl 750 mg in 250 mls @ 250 mls/hr 11/29/19 10:00 Vancomycin 750 Mg/D5w 250 Ml IVPB Q48H
--- NOTE | 2019-11-29 09:44 | PC.NURSE ---
Pt left the floor for ultrasound
[2019-11-29] MEDS: POTASSIUM CHLORIDE 10 MEQ TABLET PO (10:26)
[2019-11-29] MEDS: CEFEPIME 0.5 GM in DEXTROSE 5% IN WATER 50 ML IVPB (10:34)
[2019-11-29 12:12] LABS: Glucose Point of Care 328 (65-105)
[2019-11-29] MEDS: INSULIN ASPART (*BKC) 100 UNITS/ML SUB-Q (12:57)
--- NOTE | 2019-11-29 14:29 | PM.DDS ---
Discharge Sum: Prov Provider Primary care physician: Nyla Joyner, INTERLOCKING INSTALLER Admitting provider: Eleni Rush MD Consults: 11/27/19 Consult to Physician Routine Comment: Consulting Provider: Sujey Xiao Reason for consultation: uti Has provider been notified: Yes Consult to Physician Routine Comment: Consulting Provider: Rommel Srivastava Reason for consultation: renal failure Has provider been notified: Yes Pronouncing clinician: Rahat Fernando Discharge Sum: Diag PCOD Possible cerebrovascular event Contributing Factors (1) Complicated UTI (urinary tract infection): (2) Acute renal failure (ARF): (3) Hydronephrosis: (4) CHF (congestive heart failure): (5) COPD (chronic obstructive pulmonary disease): Discharge Sum: Summary Date and Time Date of admission: 11/27/19 15:11 Date of : 11/29/19 Summary Details: 79yo female here for cough. Patient with KALA on admission that was improving. UA was consistent with UTI and Rocephin started. UCx grew Pseudomonas and BCx (2of2) grew Coag Negative Staph. She remained hemodynamically stable. Rn states patient was alert and talking this morning. She was confused but patient with dementia. A little after 2pm today, the nurse noted the patient patient had vomited and was unresponsive. Swallow breathing and thready pulse so Code Blue called. CPR started. Corner Trimmer Operator intubated the patient at bedside. Epinephrine, D50 and bicarb given. Patient was cyanotic and not able to have ROSC. Pupils noted to be dilated. The code was stopped due to lack of response to aggressive measures. Spoke personally to the and informed him of the of his and of my condolences. All questions answered. The customer support advisor was notified. Additional Data Confirmation of as documented by pronouncing clinician: no pulse, no respirations, no heart sounds and pupils fixed and dilated Family: contacted Additional persons at bedside: bed and breakfast operator Attending physician: Werner Fernando MD Was code activated?: Yes
--- NOTE | 2019-11-29 14:31 | PC.NURSE ---
14:15 - RN responded to room when GRIP ASSEMBLER reported pt not looking right. Pt had brown liquid running from mouth with agonal breathing and faint pulse. Rapid response called initially and suction requested. Upon response of team, pt had stopped breathing and pulse not felt. CPR began and nickolas pino called.
--- NOTE | 2019-11-29 14:54 | P.CODEBLUE_ITS ---
Code Blue Note Code Blue Note Time Arrived at Code Blue: 1312 Initial Rhythm on Arrival: asystole Airway Management: Pt intubated during resuscitation Chest Compressions: In process on arrival to bedside Result of Code Blue: Pt Cardiac Rhythm Post Code: asystole Code Matias Summary: nickolas pino was called at 1:10 p.m., arrived in the room at 1:12 p.m. CPR was in process, patient was having a lot of brown-colored vomitus. Turned patient to her left side, suction her, continued bag-mask ventilation and CPR, intubated the patient, good color change was noted. Patient received epinephrine, bicarb, dextrose. patient remained in asystole. 16 minutes into the code it was noted that patient has dilated and fixed pupils, and right- sided subcutaneous emphysema most likely related to no thorax secondary to CPR. patient was severely cyanotic and mottled. I discuss with Dr. Fernando and all the other members in the room, and called of the code.
--- NOTE | 2019-11-29 14:59 | P.PCNBED_ITS ---
Procedures Intubation: Intubation Date: 11/29/19 Intubation Time: 13:14 A pre- procedural Time-Out was completed immediately before starting the procedure and confirmed: Patient Identification, Site, Procedure, Patient Position and the Availability of Requisite Equipment: No Sedative: none ET tube size: 7.5 Tube placement confirmation: visualized tube passing through cords and confirmation by capnometry Patient tolerated procedure: other ( patient was in a Code Blue, CPR was in progress when I intubated the patient) Intubation complications: none Additional comments: patient was intubated during the emergency code situation, a MAC 4 blade was used to visualize the vocal cords, patient had significant brown vomitus which was suction through a yanker, once cords were visualized, ET tube was inserted and seen passing through the vocal Cords. End-tidal CO2 monitor was connected with good air exchange. Bag-mask ventilation was continued Patient
[2019-11-30 02:07] LABS: Eosinophil Urine 1 % eos
== END 2019-11-29 14:24 | disposition expired | DRG 683 ==
LOC: ANHED 15:31 → ANH3MED 18:38
PROVIDERS: Emergency Medicine; Family Medicine; Internal Medicine; Internal Medicine Nephrology; Urology; Admitting Provider Family Medicine; Emergency Provider Emergency Medicine; PCP Nurse Practitioner Adult Health; Visit Provider Family Medicine
DX: N17.9 Acute kidney failure, unspecified (principal); N39.0 Urinary tract infection, site not specified; J44.9 Chronic obstructive pulmonary disease, unspecified; I50.9 Heart failure, unspecified; B96.5 Pseudomonas (aeruginosa) (mallei) (pseudomallei) as the cause of diseases classified elsewhere; R33.9 Retention of urine, unspecified; N13.30 Unspecified hydronephrosis; E55.9 Vitamin D deficiency, unspecified; F41.8 Other specified anxiety disorders; F03.90 Unspecified dementia, unspecified severity, without behavioral disturbance, psychotic disturbance, mood disturbance, and anxiety; K21.9 Gastro-esophageal reflux disease without esophagitis; I11.0 Hypertensive heart disease with heart failure; M81.0 Age-related osteoporosis without current pathological fracture; M48.00 Spinal stenosis, site unspecified; G47.30 Sleep apnea, unspecified; K58.9 Irritable bowel syndrome, unspecified; L30.9 Dermatitis, unspecified; D64.9 Anemia, unspecified; B95.7 Other staphylococcus as the cause of diseases classified elsewhere; M19.90 Unspecified osteoarthritis, unspecified site; I71.4 Abdominal aortic aneurysm, without rupture; I46.9 Cardiac arrest, cause unspecified; Z93.3 Colostomy status; Z08 Encounter for follow-up examination after completed treatment for malignant neoplasm; Z85.3 Personal history of malignant neoplasm of breast; Z86.73 Personal history of transient ischemic attack (TIA), and cerebral infarction without residual deficits; Z85.41 Personal history of malignant neoplasm of cervix uteri; Z85.43 Personal history of malignant neoplasm of ovary; Z90.710 Acquired absence of both cervix and uterus; Z87.891 Personal history of nicotine dependence; Z99.81 Dependence on supplemental oxygen
CPT/HCPCS: 36415; 71045; 74176; 76705; 76775; 80048; 80053; 81001; 82550; 82570; 83605; 83690; 83880; 84156; 84300; 84443; 85025; 85027; 85610; 85730; 85999; 87040; 87077; 87086; 87088; 87186; 87804; 92950; 93005; 93306; 94640; 96365; 96375; 97165; 99291; A9270; J0171; J0610; J0692; J0696; J1815; J1940; J3370; J7030